=== PATIENT | male | born 1945 | race Caucasian/White ===

== ENCOUNTER 2018-04-11 13:52 | Emergency (ER) | payer MEDICARE, OTHER ==
[~2018-04-11] VITALS: Ht 185.4 cm; Wt 86.2 kg
[~2018-04-11 13:52] MED LIST: COLACE100 M1 PO; DITROPAN XL5 MG PO; FLOMAX0.4 MG PO; KEPPRA500 MG PO; LACTULOSE20 GM/30 M PO; LASIX40 MG PO; METOPROLOL TART25 MG PO; NEURONTIN300 MG PO; NORCO 10-325 T1 EACH PO; PEPCID20 MG PO; POTASSIUM CHLO10 MEQ PO; PRILOSEC20 MG PO; PROCAR PO; SEROQUEL100 MG PO; TRAZADONE PO; WELLBUTRIN75 MG PO; ZOLOFT50 MG PO; [UNRECOGNIZED DRUG - OTHER] PO
--- NOTE | 2018-04-11 15:32 | Diagnostic Imaging Report ---
EXAMINATION: CHEST 2 VIEWS INDICATION: Chest pain. COMPARISON: None FINDINGS: TUBES and LINES: None. LUNGS: Lungs are well inflated. Chronic appearing changes in lungs with calcified granuloma in the left lower lung. There is no evidence of pneumonia or pulmonary edema. PLEURA: No pleural effusion or pneumothorax. HEART AND MEDIASTINUM: The cardiomediastinal silhouette is unremarkable. BONES AND SOFT TISSUES: No acute osseous lesion. Soft tissues are unremarkable. UPPER ABDOMEN: No free air under the diaphragm. IMPRESSION: No acute thoracic abnormality. Signed by: Dr. Vimal Carter M.D. on 04/11/2018 3:28 PM
--- NOTE | 2018-04-11 19:23 | Diagnostic Imaging Report ---
EXAMINATION: RIBS UNILAT W/CXR INDICATION: \S\left anterior lower rib tenderness r/o fx pls COMPARISON: None FINDINGS: TUBES and LINES: None. LUNGS: Lungs are well inflated. Perihilar interstitial and alveolar opacities consistent with pulmonary edema. Calcified granuloma in the left lung base. PLEURA: No pleural effusion or pneumothorax. HEART AND MEDIASTINUM: Cardiac size is moderately enlarged. There are atherosclerotic calcifications within the aorta. BONES AND SOFT TISSUES: No acute osseous lesion. Soft tissues are unremarkable. UPPER ABDOMEN: No free air under the diaphragm. IMPRESSION: 1. Pulmonary edema. 2. No fractures. Signed by: Dr. Gio Landa M.D. on 04/11/2018 7:20 PM
== END 2018-04-11 21:49 | disposition home or self-care (01) ==
LOC: ER 13:52
DX: S20.212A Contusion of left front wall of thorax, initial encounter (principal); W18.39XA Other fall on same level, initial encounter; I10 Essential (primary) hypertension; J44.9 Chronic obstructive pulmonary disease, unspecified; Z87.442 Personal history of urinary calculi
CPT/HCPCS: 71046; 71101; 99284